=== PATIENT | male | born 1990 | race Caucasian/White ===

== ENCOUNTER 2018-01-18 11:43 | Emergency (ER) | payer SELFPAY ==
[~2018-01-18 11:43] MED LIST: IBUP800T23 PO; [UNRECOGNIZED DRUG - OTHER]
== END 2018-01-18 13:00 | disposition left against medical advice (07) ==
LOC: PHED 11:43
DX: Z53.21 Procedure and treatment not carried out due to patient leaving prior to being seen by health care provider (principal)
CPT/HCPCS: 99281

== ENCOUNTER 2018-01-18 16:09 | Emergency (ER) | payer SELFPAY ==
[~2018-01-18] VITALS: Ht 177.8 cm; Wt 67.0 kg
[2018-01-18 16:11] VITALS: BP 119/56; PULSE 85; RESP 14; TEMP 98.4; O2SAT 100
--- NOTE | 2018-01-18 16:35 | PD ---
HPI Chief Complaint: Respiratory Distress Time Seen by Provider: 16:27 Travel History International Travel<30 days: No Contact w/Intl Traveler<30days: No Traveled to known affect area: No History of Present Illness HPI 27-year-old male with history of hepatitis C and remote IV drug use 4 years ago , presents to emergency department for evaluation of chest pressure, shortness of breath, fever, chills, worsening over last 4 days. Patient denies any recent IV drug use. Reports cough is nonproductive. No nausea vomiting. He has no other symptoms to report at this time. PFSH Past Medical History Hx Anticoagulant Therapy: No Asthma: No Autoimmune Disease: No Blood Disorders: No Anxiety: Yes Depression: Yes Cancer: No Cardiovascular Problems: No Chemotherapy: No Congestive Heart Failure: No Diabetes: No Diminished Hearing: No Endocrine: No Gastrointestinal Disorders: No Genitourinary: No Headaches: No Hepatitis: Yes (DIAGNOSED 11/11/15, HEP C) Hypertension: No Immune Disorder: No Inguinal Hernia: Yes (BILAT REPAIR) Kidney Stones: No Musculoskeletal: No Neurologic: Yes Reproductive: No Respiratory: No Immunizations Current: Yes Migraines: No Seizures: Yes Thyroid Disease: No Ulcer: No PNEUMOCCOCAL Vaccine (Year): 2 Past Surgical History Cardiac Surgery: No Genitourinary Surgery: No Thoracic Surgery: No Other Surgery: Yes (BILAT INGUINAL HERNIA) Social History Alcohol Use: Yes Tobacco Use: No Substance Use: Yes (HX OF MRIJUANA, DILAUDID, XANAX; "CLEAN FOR 2 YEARS") Allergies-Medications (Allergen,Severity, Reaction): Coded Allergies: amoxicillin (Unverified Allergy, Severe, TOLD CHILD, 01/18/18) carbamazepine (Unverified Allergy, Severe, DOES NOT KNOW, 01/18/18) codeine (Unverified Allergy, Severe, UNKNOWN, 01/18/18) penicillin G (Unverified Allergy, Severe, TOLD CHILD, 01/18/18) *MDRO Multi-Drug Resistant Organism (Verified Adverse Reaction, Unknown, ) MRSA sputum 2008. Reported Meds & Prescriptions Reported Meds & Active Scripts Active Ibuprofen 800 Mg Tab 800 Mg PO Q6H PRN Reported [Anabolic Steroids] Review of Systems Except as stated in HPI: all other systems reviewed are Neg Physical Exam Narrative GENERAL: Thin male patient, lying in bed in no acute distress. SKIN: Focused skin assessment warm/dry. HEAD: Atraumatic. Normocephalic. EYES: Pupils equal and round. No scleral icterus. No injection or drainage. ENT: No nasal bleeding or discharge. Mucous membranes pink and moist. NECK: Trachea midline. No JVD. CARDIOVASCULAR: Regular rate and rhythm. No murmur appreciated. RESPIRATORY: No accessory muscle use. Diminished,. Breath sounds equal bilaterally. GASTROINTESTINAL: Abdomen soft, non-tender, nondistended. Hepatic and splenic margins not palpable. MUSCULOSKELETAL: No obvious deformities. No clubbing. No cyanosis. No edema. NEUROLOGICAL: Awake and alert. No obvious cranial nerve deficits. Motor grossly within normal limits. Normal speech. PSYCHIATRIC: Appropriate mood and affect; insight and judgment normal. Data Data Last Documented VS Vital Signs Date Time Temp Pulse Resp B/P (MAP) Pulse Ox O2 Delivery O2 Flow Rate FiO2 01/18/18 18:52 01/18/18 16:52 100 Room Air 01/18/18 16:11 98.4 85 14 Orders Orders Electrocardiogram (01/18/18 16:34) Complete Blood Count With Diff (01/18/18 16:34) Comprehensive Metabolic Panel (01/18/18 16:34) Lipase (01/18/18 16:34) Chest, Single Ap (01/18/18 16:34) Ecg Monitoring (01/18/18 16:34) Bilateral Bp Monitoring (01/18/18 16:34) Iv Access Insert/Monitor (01/18/18 16:34) Oximetry (01/18/18 16:34) Oxygen Administration (01/18/18 16:34) Sodium Chloride 0.9% Flush (Ns Flush) (01/18/18 16:45) Westergren Sedimentation Rate (01/18/18 16:34) Ketorolac Inj (Toradol Inj) (01/18/18 16:45) Sodium Chlor 0.9% 1000 Ml Inj (Ns 1000 M (01/18/18 16:45) Sodium Chlor 0.9% 1000 Ml Inj (Ns 1000 M (01/18/18 16:45) Albuterol-Ipratropium Neb (Duoneb Neb) (01/18/18 17:00) Methylprednisolone So Succ Inj (Solumedr (01/18/18 17:00) Ibuprofen (Motrin) (01/18/18 17:00) Influenzae A/B Antigen (01/18/18 17:03) Ed Discharge Order (01/18/18 17:54) Labs Laboratory Tests Test 01/18/18 16:46 White Blood Count 4.0 TH/MM3 Red Blood Count 4.24 MIL/MM3 Hemoglobin 12.9 GM/DL Hematocrit 37.0 % Mean Corpuscular Volume 87.2 FL Mean Corpuscular Hemoglobin 30.4 PG Mean Corpuscular Hemoglobin Concent 34.8 % Red Cell Distribution Width 12.7 % Platelet Count 105 TH/MM3 Mean Platelet Volume 8.6 FL Neutrophils (%) (Auto) 58.6 % Lymphocytes (%) (Auto) 33.8 % Monocytes (%) (Auto) 7.1 % Eosinophils (%) (Auto) 0.1 % Basophils (%) (Auto) 0.4 % Neutrophils # (Auto) 2.4 TH/MM3 Lymphocytes # (Auto) 1.4 TH/MM3 Monocytes # (Auto) 0.3 TH/MM3 Eosinophils # (Auto) 0.0 TH/MM3 Basophils # (Auto) 0.0 TH/MM3 CBC Comment DIFF FINAL Differential Comment Erythrocyte Sedimentation Rate 16 mm/hr Blood Urea Nitrogen 14 MG/DL Creatinine 0.91 MG/DL Random Glucose 82 MG/DL Total Protein 7.3 GM/DL Albumin 3.7 GM/DL Calcium Level 8.4 MG/DL Alkaline Phosphatase 66 U/L Aspartate Amino Transf (AST/SGOT) 59 U/L Alanine Aminotransferase (ALT/SGPT) 76 U/L Total Bilirubin 0.3 MG/DL Sodium Level 137 MEQ/L Potassium Level 3.8 MEQ/L Chloride Level 104 MEQ/L Carbon Dioxide Level 28.0 MEQ/L Anion Gap 5 MEQ/L Estimat Glomerular Filtration Rate 100 ML/MIN Lipase 70 U/L [facility] Medical Decision Making Medical Screen Exam Complete: Yes Emergency Medical Condition: Yes Medical Record Reviewed: Yes Differential Diagnosis Influenza versus pneumonia versus endocarditis versus pleuritic pain Narrative Course 27-year-old male presents to emergency department for evaluation. Patient appears as though he does not feel well but he appears nontoxic. He does have diminished breath sounds. DuoNeb insight metal is provided as well as IV fluids. Laboratory Tests Test 01/18/18 16:46 White Blood Count 4.0 TH/MM3 Red Blood Count 4.24 MIL/MM3 Hemoglobin 12.9 GM/DL Hematocrit 37.0 % Mean Corpuscular Volume 87.2 FL Mean Corpuscular Hemoglobin 30.4 PG Mean Corpuscular Hemoglobin Concent 34.8 % Red Cell Distribution Width 12.7 % Platelet Count 105 TH/MM3 Mean Platelet Volume 8.6 FL Neutrophils (%) (Auto) 58.6 % Lymphocytes (%) (Auto) 33.8 % Monocytes (%) (Auto) 7.1 % Eosinophils (%) (Auto) 0.1 % Basophils (%) (Auto) 0.4 % Neutrophils # (Auto) 2.4 TH/MM3 Lymphocytes # (Auto) 1.4 TH/MM3 Monocytes # (Auto) 0.3 TH/MM3 Eosinophils # (Auto) 0.0 TH/MM3 Basophils # (Auto) 0.0 TH/MM3 CBC Comment DIFF FINAL Differential Comment Erythrocyte Sedimentation Rate 16 mm/hr Blood Urea Nitrogen 14 MG/DL Creatinine 0.91 MG/DL Random Glucose 82 MG/DL Total Protein 7.3 GM/DL Albumin 3.7 GM/DL Calcium Level 8.4 MG/DL Alkaline Phosphatase 66 U/L Aspartate Amino Transf (AST/SGOT) 59 U/L Alanine Aminotransferase (ALT/SGPT) 76 U/L Total Bilirubin 0.3 MG/DL Sodium Level 137 MEQ/L Potassium Level 3.8 MEQ/L Chloride Level 104 MEQ/L Carbon Dioxide Level 28.0 MEQ/L Anion Gap 5 MEQ/L Estimat Glomerular Filtration Rate 100 ML/MIN Lipase 70 U/L Last Impressions Chest X-Ray 01/18/18 1634 Signed Impressions: Service Date/Time: Thursday, January 18, 2018 16:50 - CONCLUSION: No acute cardiopulmonary abnormality is identified. Adonis Phelps MD Influenza screen is positive for influenza B. I discussed the patient my attending physician. Symptoms have been ongoing for 4 days. Tamiflu is discussed with the patient decides to defer this due to 4 days of symptoms and cough. Patient will be discharged home at this time.. Diagnosis Primary Impression: Influenza B Referrals: Primary Care Physician Patient Instructions: General Instructions, Influenza (ED) Additional Instructions: Rest Maintain adequate oral hydration Avoid prolonged bed rest Make sure you are coughing and taking deep breaths Tylenol or ibuprofen as directed on the package as needed for fever and/or pain Return immediately with any acute worsening symptoms Med/Other Pt SpecificInfo: Prescription(s) given Disposition: 01 DISCHARGE HOME Condition: Stable Kerry Romo Jan 18, 2018 16:35
[2018-01-18] MEDS ORDERED: SODIUM CHLORIDE 0.9% FLUSH 10 ML FLUSH IVF PRN (16:45)
[2018-01-18] MEDS ORDERED: KETOROLAC TROMETHAMINE 30 MG/ML (IVP) VIAL IV PUSH ONE (16:45)
[2018-01-18] MEDS ORDERED: SODIUM CHLOR 0.9% 1000 ML INJ 1,000 ML IV ONE ×2 (16:45)
[2018-01-18 16:52] VITALS: O2SAT 100
[2018-01-18] MEDS ORDERED: IBUPROFEN 800 MG TAB PO ONE (17:00)
[2018-01-18] MEDS ORDERED: RESP: ALBUTEROL 2.5 MG/IPRATROPIUM 0.5 MG NEB (SCH) NEB ONE (17:00)
[2018-01-18] MEDS ORDERED: methylPREDNISolone SOD SUCC 125 MG/2 ML VIAL IV PUSH ONE (17:00)
[2018-01-18 17:06] LABS: AUTOMATED NEUTROPHIL # 2.4 TH/MM3 (1.8-7.7); BASOPHIL % 0.4 % (0.0-2.0); EOSINOPHIL % 0.1 % (0.0-4.0); HEMOGLOBIN 12.9 GM/DL (13.0-17.0); LYMPH % 33.8 % (9.0-44.0); LYMPHOCYTE # 1.4 TH/MM3 (1.0-4.8); MEAN CELL VOLUME 87.2 FL (80.0-100.0); MEAN CORPUSCULAR HEMOGLOBIN 30.4 PG (27.0-34.0); MEAN CORPUSCULAR HGB CONC 34.8 % (32.0-36.0); MEAN PLATELET VOLUME 8.6 FL (7.0-11.0); MONO % 7.1 % (0.0-8.0); MONOCYTE # 0.3 TH/MM3 (0-0.9); NEUT % 58.6 % (16.0-70.0); PLATELET COUNT 105 TH/MM3 (150-450); RED BLOOD COUNT 4.24 MIL/MM3 (4.50-5.90); RED CELL DISTRIBUTION WIDTH 12.7 % (11.6-17.2)
[2018-01-18 17:35] LABS: ALKALINE PHOSPHATASE 66 U/L (45-117); TOTAL BILIRUBIN ADULT 0.3 MG/DL (0.2-1.0); TOTAL PROTEIN 7.3 GM/DL (6.4-8.2)
[2018-01-18 17:36] LABS: ALBUMIN 3.7 GM/DL (3.4-5.0); ALT (GPT) 76 U/L (12-78); AST (GOT) 59 U/L (15-37); BLOOD UREA NITROGEN 14 MG/DL (7-18); CALCIUM 8.4 MG/DL (8.5-10.1); CHLORIDE 104 MEQ/L (98-107); CREATININE 0.91 MG/DL (0.60-1.30); GLOMERULAR FILTRATION RATE 100 ML/MIN (>89); GLUCOSE,RANDOM 82 MG/DL (74-106); SODIUM (NA) 137 MEQ/L (136-145)
--- NOTE | 2018-01-18 17:45 | RADRPT ---
EXAM DATE/TIME: 01/18/2018 16:50 [facility] COMPARISON: CHEST SINGLE AP, September 10, 2016, 23:49. INDICATIONS : Chest Pain MEDICAL HISTORY : Seizures. Hepatitis C. SURGICAL HISTORY : Inguinal hernia repair. ENCOUNTER: Initial ACUITY: 1 day PAIN SCORE: 0/10 LOCATION: chest FINDINGS: Portable AP view of the chest demonstrates a normal-sized cardiac silhouette. No effusion, consolidat ion, or pneumothorax is visualized. The bones and soft tissues demonstrate no acute abnormality. CONCLUSION: No acute cardiopulmonary abnormality is identified. Adonis Phelps MD on January 18, 2018 at 17:42 Board Certified Radiologist. This report was verified electronically.
--- NOTE | 2018-01-18 21:11 | EKG ---
Date Performed: 01/18/2018 Time Performed: 16:54:49 PTAGE: 27 years EKG: Sinus rhythm NORMAL ECG PREVIOUS TRACING : 09/03/2016 19.44 No significant change from previous tracing noted. DOCTOR: Bipin Garcia Interpretating Date/Time 01/18/2018 21:10:36
== END 2018-01-18 18:52 | disposition home or self-care (01) ==
LOC: NEPE 16:09
DX: J10.1 Influenza due to other identified influenza virus with other respiratory manifestations (principal); R07.89 Other chest pain; B19.20 Unspecified viral hepatitis C without hepatic coma
CPT/HCPCS: 71045; 80053; 83690; 85025; 85652; 87804; 93005; 94664; 96374; 99285; J2930; J7030